=== PATIENT | female | born 2000 | race Caucasian/White ===

== ENCOUNTER → 2020-08-31 14:49 | Outpatient (BNVA) | payer OTHER, SELFPAY | PROVIDERS: Visit Provider Advanced Practice Midwife | DX: Z32.01 Encounter for pregnancy test, result positive (principal) | CPT/HCPCS: 81025; 99212 ==

== ENCOUNTER → 2020-09-23 10:05 | Outpatient (BNVA) | payer OTHER, SELFPAY | PROVIDERS: Visit Provider Advanced Practice Midwife | DX: Z32.01 Encounter for pregnancy test, result positive (principal) | CPT/HCPCS: 99212 ==

== ENCOUNTER 2020-09-30 08:47 | Outpatient (REF) | payer OTHER, SELFPAY ==
[2020-09-30 10:22] LABS: Hematocrit 39.3 % (37-47); Hemoglobin 13.3 g/dl (12.0-16.0); Mean Corpuscular HGB Conc 33.8 g/dl (31.0-35.0); Mean Corpuscular Hemoglobin 29.4 pg (27.0-33.0); Mean Corpuscular Volume 86.9 fL (80-98); Mean Platelet Volume 10.6 fL (9.4-12.3); Platelet Count 211 X10*3/uL (160-400); Red Blood Count 4.52 X10*6/uL (4.20-5.50); Red Cell Distribution Width 12.6 % (11.0-16.0); White Blood Count 8.8 X10*3/uL (4.8-10.8)
[2020-09-30 10:41] LABS: Glucose 1 Hour PP 50gm Dose 98 mg/dL (60-140)
[2020-09-30 11:54] LABS: HBsAGNum1 0.19 S/CO (0.00-0.99); Hepatitis B Surface Antigen Negative (Negative); Syphilis Screen Nonreactive (Nonreactive)
[2020-09-30 12:07] LABS: Amphetamine Screen Urine Not Detected (Not Detect); Barbiturates, Urine Not Detected (Not Detect); Benzodiazepines Screen Urine Not Detected (Not Detect); Cannabinoid Screen Urine Not Detected (Not Detect); Cocaine Screen Urine Not Detected (Not Detect); HIV AB/AG Nonreactive (Nonreactive); HIV Num 1 0.07 S/CO (0.00-0.99); Opiate Screen Urine Not Detected (Not Detect); Phencyclidine Screen Urine Not Detected (Not Detect); ~HepC Num1 0.15 S/CO (0.00-0.79); ~Hepatitis C Antibody Nonreactive (Nonreactive)
[2020-10-02 05:32] LABS: Rubella IgG Antibody <0.90 Index; Varicella IgG Antibody <135.00 index
== END 2020-09-30 08:48 | disposition home or self-care (01) ==
LOC: HO.LAB 08:47
PROVIDERS: Visit Provider Advanced Practice Midwife
DX: Z01.84 Encounter for antibody response examination (principal); Z11.4 Encounter for screening for human immunodeficiency virus [HIV]; Z11.59 Encounter for screening for other viral diseases
CPT/HCPCS: 80307; 85027; 86762; 86780; 86787; 86803; 86850; 86886; 86900; 86901; 87086; 87340; 87389

== ENCOUNTER 2020-10-07 09:01 | Outpatient (REF) | payer OTHER, SELFPAY ==
[2020-10-08 02:39] LABS: CT PCR NOT DETECTED (Not Detect.); NG PCR NOT DETECTED (Not Detect.)
[2020-10-08 13:01] LABS: BV Int Neg Control Negative (Negative); BV Int Pos Control Positive (Positive)
[2020-10-14 21:26] LABS: HPV 16 RNA NOT DETECTED (NOT DETECTED); HPV mRNA E6/E7 rflx Detected (Not Detected)
== END 2020-10-07 09:02 | disposition home or self-care (01) ==
LOC: HO.LAB 09:01
PROVIDERS: Visit Provider Advanced Practice Midwife
DX: Z01.419 Encounter for gynecological examination (general) (routine) without abnormal findings (principal); Z34.01 Encounter for supervision of normal first pregnancy, first trimester; Z3A.11 11 weeks gestation of pregnancy; Z20.2 Contact with and (suspected) exposure to infections with a predominantly sexual mode of transmission
CPT/HCPCS: 87480; 87491; 87510; 87591; 87624; 87625; 87660; 88142; 99212

== ENCOUNTER 2020-10-16 12:15 | Outpatient (REF) | payer OTHER, SELFPAY ==
--- NOTE | ~2020-10-16 | US_ITS ---
EXAMINATION: OBSTETRICAL ULTRASOUND, FIRST TRIMESTER HISTORY: 20-year-old at the 12.2 weeks NT screening COMPARISON: None TECHNIQUE: Real time transabdominal imaging with color and M-mode Doppler. FINDINGS: A single, live IUP CRL of 70.1 mm c/w 13.2wks is noted. Heart Rate: 155 beats per minute. Normal yolk sac seen. NT was 1.5.mm. NB Present The embryo appears sonographically wnl for this GA. Small subchorionic hematoma. Both maternal ovaries are seen and appear normal. GESTATIONAL AGE: 1. Established GA: 12.2 wks 2. GA from [facility]: 13.2 wks ESTIMATED DATE OF DELIVERY: 1. Established PRITESH: 04/28/2020 2. PRITESH from [facility]: 04/21/2020 US/US OB 1T nuc measure IMPRESSION: 1. A single live IUP 2. size equals dates 3. NT of 1.53 mm MFM Consultation: I reviewed the ultrasound findings along with significance of NT measurement. The NT of less than 3mm is generally reassuring. However, the sensitivity for T21 detection is only 60%. I reviewed the availability of serum aneuploidy screening which includes cell-free DNA and placental protein based tests. I discussed the sensitivity, false-positive rate, and other limitations associated with each test. I also reviewed the availability of invasive diagnostic tests that are associated small but definite risk of miscarriage. We also reviewed the differences between screening tests and diagnostic tests. After our discussion, she opted for the First trimester screening that is based on cell-free DNA or non-invasive testing (NIPT). The result will be faxed to your office in approximately 7 days. A follow up at 18 weeks for survey has been scheduled. Thank you very much for this referral. Total time 30 minutes. The time spent was devoted to counseling the patient about the disease and diagnosis, coordinating care including reviewing her records, pertinent lab data and studies, as well as discussing diagnostic evaluation and workup, plan therapeutic interventions and future disposition of care. This includes any additional research needed to obtain further information in formulating the plan of care of this patient. This note was generated with a voice recognition program. Please excuse any errors which may have been overlooked during my review of this note. Sometimes these errors may affect the content or meaning of a given sentence.
== END 2020-10-16 12:16 | disposition home or self-care (01) ==
LOC: HO.US 12:15
PROVIDERS: Visit Provider Advanced Practice Midwife
DX: Z36.82 Encounter for antenatal screening for nuchal translucency (principal)
CPT/HCPCS: 76813

== ENCOUNTER → 2020-11-04 09:48 | Outpatient (BNVA) | payer OTHER, SELFPAY | PROVIDERS: Visit Provider Advanced Practice Midwife | DX: Z34.02 Encounter for supervision of normal first pregnancy, second trimester (principal); Z3A.15 15 weeks gestation of pregnancy | CPT/HCPCS: 81003; 99212 ==

== ENCOUNTER 2020-11-27 12:53 | Outpatient (REF) | payer OTHER, SELFPAY ==
--- NOTE | ~2020-11-27 | US_ITS ---
EXAMINATION: US OBSTETRICAL CLINICAL INFORMATION: 20-year-old at 18.2 weeks of gestation Screening for anomaly COMPARISON: 10/16/2020 TECHNIQUE: Real-time transabdominal ultrasound was performed using C1-5 megahertz transducer. FINDINGS: A single, active, fetus is seen in breech presentation. The placenta is posterior without previa, and the amniotic fluid volume is wnl. MEASUREMENTS: 1. Biparietal Diameter: 4.5 cm; 19.4 wks 2. Occipital Frontal Diameter: 5.6 cm 3. Head Circumference: 16.6 cm; 19.2 wks 4. Abdominal Circumference: 13.8 cm; 19.2 wks 5. Femur Length: 2.9 cm; 19.1 wks 6. Humerus Length: 2.7 cm; 18.6 wks 7. Tibia Length: 2.6 cm; 19.4 wks 8. Ulna Length: 2.6 cm; 19.5 wks 9. Lateral ventricle: 0.8 cm 10. Cerebellum: 1.9 cm; 19.5 wks 11. Cisterna Magna: 0.43 cm 12. Nuchal Fold: 3.3 mm 13. Heart Rate: 149 beats per minute Rt ovary: normal Lt ovary: normal Cervical length 4.9 cm on T/A. GESTATIONAL AGE: 1. Established GA: 18.2 wks 2. GA from [facility]: 19.3 wks ESTIMATED DATE OF DELIVERY: 1. Established PRITESH: 04/28/2021 2. PRITESH from [facility]: 04/20/2021 ANATOMY: Bilateral choroid plexus cysts. The visualized anatomy includes but not limited to: 1. Cranium: Normal 2. Intracranial anatomy: cavum septum pellucidi, lateral ventricles, choroid plexus cyst, cerebellum, posterior fossa, third and fourth ventricles. 3. face: orbits, lip/palate, profile, nasal bone 4. Heart: four-chamber view of the heart, ventricular septum, foramen ovale, pulmonary vein, left and right outflow tracts, three-vessel view, 3 vessel trachea view, aortic and ductal arches, situs.. 5. Diaphragm: Normal 6. Abdominal wall: Normal 7. Cord Insertion: Normal 8. Spine: Cervical, thoracic, lumbar, sacral. 9. Stomach: Normal size and shape 10. Right Kidney: Normal 11. Left Kidney: Normal 12. 3 vessel cord: Normal 13. Upper extremity: Open hands, fifth digit. 14. Lower extremity: Tibia, fibula, bilateral feet. 15. Bladder: Normal 16. Genitalia: Male, patient aware US/US OB /maternal det add IMPRESSION: 1. Single, living, intrauterine with appropriate biometry. 2. Bilateral choroid plexus cysts. Rest of the anatomy was within normal limits. 3. Amniotic fluid volume within normal limits DISCUSSION: I reviewed today's ultrasound findings. I informed the patient that the choroid plexus cyst and not congenital abnormalities. In majority of the cases there are associated with the benign obstetrical outcome. Although it is seen in approximately 3% of normal fetuses at this gestational age, the frequency is higher in fetuses with trisomy 18. The likelihood ratio is 2.0. In the setting of low risk N IPT, isolated choroid plexus cyst is thought to be a normal variant. According to the patient, her NIPT showed low risk for trisomy 21, 18 and 13. We discussed the limitations of ultrasound in diagnosing aneuploidy and other congenital abnormalities. I reviewed the differences between screening test and diagnostic test. Amniocentesis was discussed and declined. She was informed that the baseline incidence of congenital abnormalities is approximately 3-5%. Not all these conditions are diagnosable in utero. RECOMMENDATIONS: 1. Suggest a follow-up in approximately 6 weeks (scheduled). Thank you for allowing me to participate in her care. Total time 30 minutes. The time spent was devoted to counseling the patient about the disease and diagnosis, coordinating care including reviewing her records, pertinent lab data and studies, as well as discussing diagnostic evaluation and workup, plan therapeutic interventions and future disposition of care. This includes any additional research needed to obtain further information in formulating the plan of care of this patient. This note was generated with a voice recognition program. Please excuse any errors which may have been overlooked during my review of this note. Sometimes these errors may affect the content or meaning of a given sentence.
== END 2020-11-27 12:54 | disposition home or self-care (01) ==
LOC: HO.US 12:53
PROVIDERS: Visit Provider Advanced Practice Midwife
DX: O35.9XX0 Maternal care for (suspected) fetal abnormality and damage, unspecified, not applicable or unspecified (principal); Z36.3 Encounter for antenatal screening for malformations
CPT/HCPCS: 76811; 76812

== ENCOUNTER → 2020-12-02 10:08 | Outpatient (BNVA) | payer OTHER, SELFPAY | PROVIDERS: Visit Provider Advanced Practice Midwife | DX: Z34.02 Encounter for supervision of normal first pregnancy, second trimester (principal); Z3A.19 19 weeks gestation of pregnancy; Z12.4 Encounter for screening for malignant neoplasm of cervix | CPT/HCPCS: 81003; 99212 ==

== ENCOUNTER → 2020-12-30 14:51 | Outpatient (BNVA) | payer OTHER, SELFPAY | PROVIDERS: Visit Provider Advanced Practice Midwife | DX: O99.212 Obesity complicating pregnancy, second trimester (principal); E66.9 Obesity, unspecified; Z3A.23 23 weeks gestation of pregnancy | CPT/HCPCS: 99212 ==

== ENCOUNTER 2021-01-08 12:23 | Outpatient (REF) | payer OTHER, SELFPAY ==
--- NOTE | ~2021-01-08 | US_ITS ---
EXAMINATION: OBSTETRICAL ULTRASOUND, Follow up HISTORY: 20-year-old at 24.2 weeks of gestation Choroid plexus cyst seen at the survey Size date discrepancy COMPARISON: 11/27/2020 TECHNIQUE: Real time transabdominal imaging with color and M-mode Doppler. PRESENTATION: Vertex PLACENTA LOCATION: Posterior without previa AMNIOTIC FLUID: MERCEDES 12.6 cm MEASUREMENTS: 1. Biparietal Diameter: 6.5 cm; 26.3 wks 2. Head Circumference: 24.2 cm; 26.2 wks 3. Abdominal Circumference: 21.0 cm; 25.4 wks 4. Femur Length: 4.6 cm; 25.3 wks 5. Heart Rate: 152 beats per minute Choroid plexus cysts were no longer visible. The views of posterior fossa, lateral ventricles, four-chamber view of the heart, stomach, bladder, kidneys are within normal limits. WEIGHT: EFW: 827 grams (1 lbs 13 oz) -- 92 %. BIOPHYSICAL PROFILE: Motion: 2 Tone: 2 Breathin Amniotic Fluid: 2 Total score: 8/8 GESTATIONAL AGE: 1. Established GA: 24.2 wks 2. GA from [facility]: 26.0 wks ESTIMATED DATE OF DELIVERY: 1. Established PRITESH: 04/28/2021 2. PRITESH from [facility]: 04/16/2021 US/US OB follow up IMPRESSION: 1. A single active fetus is in vertex presentation 2. Size greater than dates, EFW corresponds to 92nd percentile 3. Resolution of choroid plexus cyst 4. Reassuring testing I reassured her that the growth is appropriate. Vertebral early to extrapolate to apparatus weights. Even though the EFW corresponds to 92nd percentile, this does not predict macrosomia at delivery. Follow-up ultrasound has not been scheduled. Thank you very much for this referral. Total time 20 minutes. The time spent was devoted to counseling the patient about the disease and diagnosis, coordinating care including reviewing her records, pertinent lab data and studies, as well as discussing diagnostic evaluation and workup, plan therapeutic interventions and future disposition of care. This includes any additional research needed to obtain further information in formulating the plan of care of this patient. This note was generated with a voice recognition program. Please excuse any errors which may have been overlooked during my review of this note. Sometimes these errors may affect the content or meaning of a given sentence.
== END 2021-01-08 12:24 | disposition home or self-care (01) ==
LOC: HO.US 12:23
PROVIDERS: PCP Internal Medicine; Visit Provider Advanced Practice Midwife
DX: O35.0XX0 Maternal care for (suspected) central nervous system malformation in fetus, not applicable or unspecified (principal); O26.842 Uterine size-date discrepancy, second trimester; Z3A.24 24 weeks gestation of pregnancy
CPT/HCPCS: 76816

== ENCOUNTER → 2021-01-27 10:28 | Outpatient (BNVA) | payer OTHER, SELFPAY | PROVIDERS: Visit Provider Advanced Practice Midwife | DX: O99.212 Obesity complicating pregnancy, second trimester (principal); E66.9 Obesity, unspecified; O35.0XX0 Maternal care for (suspected) central nervous system malformation in fetus, not applicable or unspecified; O28.2 Abnormal cytological finding on antenatal screening of mother; O99.322 Drug use complicating pregnancy, second trimester; F12.90 Cannabis use, unspecified, uncomplicated; Z71.51 Drug abuse counseling and surveillance of drug abuser; Z67.40 Type O blood, Rh positive; Z79.82 Long term (current) use of aspirin; Z3A.27 27 weeks gestation of pregnancy | CPT/HCPCS: 81003; 99212 ==

== ENCOUNTER 2021-01-29 10:46 | Outpatient (REF) | payer OTHER, SELFPAY ==
--- NOTE | ~2021-01-29 | US_ITS ---
EXAMINATION: OBSTETRICAL ULTRASOUND, Follow up HISTORY: 20-year-old at the 27.2 weeks of gestation Size date discrepancy Choroid plexus cyst seen at the survey COMPARISON: 01/08/2021 TECHNIQUE: Real time transabdominal imaging with color and M-mode Doppler. PRESENTATION: Vertex PLACENTA LOCATION: Posterior without previa AMNIOTIC FLUID: Within normal limits MEASUREMENTS: 1. Biparietal Diameter: 6.9 cm; 27.5 wks 2. Head Circumference: 26.6 cm; 29.0 wks 3. Abdominal Circumference: 24.4 cm; 28.5 wks 4. Femur Length: 5.4 cm; 28.3 wks 5. Heart Rate: 139 beats per minute WEIGHT: EFW: 1242 grams (2 lbs 12 oz) -- 85 %. The views of the posterior fossa, lateral ventricles, four-chamber view of the heart, stomach, kidneys and bladder are within normal limits. The choroid plexus cysts have resolved. BIOPHYSICAL PROFILE: Motion: 2 Tone: 2 Breathin Amniotic Fluid: 2 Total score: 8/8 GESTATIONAL AGE: 1. Established GA: 28.4 wks 2. GA from [facility]: 27.2 wks ESTIMATED DATE OF DELIVERY: 1. Established PRITESH: 04/28/2021 2. PRITESH from [facility]: 04/19/2021 US/US OB follow up IMPRESSION: 1. A single active fetus is in vertex presentation 2. Size equals dates 3. Choroid plexus cysts in the longer visible 4. Reassuring biophysical profile I reviewed today's findings and gave her reassurance. As expected, choroid plexus cysts were no longer present. However, this finding itself does not rule out trisomy 18. Given that the majority of fetuses with trisomy 18 will be growth restricted, they appropriate the biometry obtained today is reassuring. Patient has one hour GLT pending. No further ultrasound has been scheduled at this time. Thank you very much for this referral. Total time 20 minutes. The time spent was devoted to counseling the patient about the disease and diagnosis, coordinating care including reviewing her records, pertinent lab data and studies, as well as discussing diagnostic evaluation and workup, plan therapeutic interventions and future disposition of care. This includes any additional research needed to obtain further information in formulating the plan of care of this patient. This note was generated with a voice recognition program. Please excuse any errors which may have been overlooked during my review of this note. Sometimes these errors may affect the content or meaning of a given sentence.
== END 2021-01-29 10:47 | disposition home or self-care (01) ==
LOC: HO.US 10:46
PROVIDERS: Visit Provider Advanced Practice Midwife
DX: O35.0XX0 Maternal care for (suspected) central nervous system malformation in fetus, not applicable or unspecified (principal); O99.212 Obesity complicating pregnancy, second trimester; E66.9 Obesity, unspecified; Z3A.27 27 weeks gestation of pregnancy
CPT/HCPCS: 76816

== ENCOUNTER → 2021-02-10 13:28 | Outpatient (BNVA) | payer OTHER, SELFPAY | PROVIDERS: Visit Provider Advanced Practice Midwife | DX: O99.213 Obesity complicating pregnancy, third trimester (principal); E66.9 Obesity, unspecified; Z68.39 Body mass index [BMI] 39.0-39.9, adult; Z3A.29 29 weeks gestation of pregnancy | CPT/HCPCS: 81003; 99212 ==

== ENCOUNTER 2021-02-17 09:13 | Outpatient (REF) | payer OTHER, SELFPAY ==
[2021-02-17 10:15] LABS: Hematocrit 35.1 % (37.0-47.0); Hemoglobin 11.7 g/dl (12.0-16.0); Mean Corpuscular HGB Conc 33.3 g/dl (31.0-35.0); Mean Corpuscular Hemoglobin 28.7 pg (27.0-33.0); Mean Corpuscular Volume 86.2 fL (80.0-98.0); Mean Platelet Volume 10.7 fL (9.4-12.3); Platelet Count 208 X10*3/uL (160-400); Red Blood Count 4.07 X10*6/uL (4.20-5.50); Red Cell Distribution Width 13.4 % (11.0-16.0); White Blood Count 6.9 X10*3/uL (4.8-10.8)
[2021-02-17 11:00] LABS: Syphilis Screen Nonreactive (Nonreactive)
[2021-02-17 11:31] LABS: Glucose 1 Hour PP 50gm Dose 93 mg/dL (60-140)
== END 2021-02-17 09:14 | disposition home or self-care (01) ==
LOC: HO.LAB 09:13
PROVIDERS: Visit Provider Advanced Practice Midwife
DX: Z34.00 Encounter for supervision of normal first pregnancy, unspecified trimester (principal)
CPT/HCPCS: 36415; 85027; 86780

== ENCOUNTER → 2021-02-22 09:35 | Outpatient (BNVA) | payer OTHER, SELFPAY | PROVIDERS: Visit Provider Advanced Practice Midwife | DX: O99.213 Obesity complicating pregnancy, third trimester (principal); E66.9 Obesity, unspecified; Z3A.30 30 weeks gestation of pregnancy | CPT/HCPCS: 81003; 99212 ==

== ENCOUNTER → 2021-03-10 12:54 | Outpatient (BNVA) | payer OTHER, SELFPAY | PROVIDERS: Visit Provider Advanced Practice Midwife | DX: Z34.03 Encounter for supervision of normal first pregnancy, third trimester (principal); Z3A.33 33 weeks gestation of pregnancy | CPT/HCPCS: 81003; 99212 ==

== ENCOUNTER 2021-04-01 14:23 | Outpatient (REF) | payer OTHER, SELFPAY | END 2021-04-01 14:24 | disposition home or self-care (01) | LOC: HO.LAB 14:23 | PROVIDERS: Visit Provider Obstetrics & Gynecology | DX: Z34.93 Encounter for supervision of normal pregnancy, unspecified, third trimester (principal); Z3A.33 33 weeks gestation of pregnancy | CPT/HCPCS: 87081; 99212 ==

== ENCOUNTER → 2021-04-09 10:35 | Outpatient (BNVA) | payer OTHER, SELFPAY | PROVIDERS: Visit Provider Advanced Practice Midwife | DX: Z34.03 Encounter for supervision of normal first pregnancy, third trimester (principal); Z3A.37 37 weeks gestation of pregnancy | CPT/HCPCS: 99212 ==

== ENCOUNTER 2025-02-03 03:10 | Emergency (ER) | payer OTHER, SELFPAY ==
[2025-02-03 03:12] VITALS: BP 129/84; PULSE 60; RESP 16; TEMP 36.2; O2SAT 97; BMI 39.4
[2025-02-03 03:24] LABS: MANUAL DIFF FLAG NO
[2025-02-03 03:26] LABS: Hematocrit 40.1 % (37.0-47.0); Hemoglobin 13.2 g/dl (12.0-16.0); Imm Gran Abs Auto 0.04 X10*3/uL (0.00-0.03); Imm Gran Pct Auto 0.3 % (0.0-0.4); Lymphocytes Absolute Auto 2.9 X10*3/uL (1.2-4.9); Mean Corpuscular HGB Conc 32.9 g/dl (31.0-35.0); Mean Corpuscular Hemoglobin 27.8 pg (27.0-33.0); Mean Corpuscular Volume 84.6 fL (80.0-98.0); NRBC Abs Auto 0.000 X10*3/uL (0.0-0.012); NRBC Pct Auto 0.0 /100WBC (0.0-0.2); Platelet Count 248 X10*3/uL (160-400); Red Blood Count 4.74 X10*6/uL (4.20-5.50); White Blood Count 12.4 X10*3/uL (4.8-10.8)
[2025-02-03 03:39] LABS: Alanine Aminotransferase 18 U/L (0-31); Albumin Level 4.5 g/dL (3.5-5.0); Alkaline Phosphatase 61 U/L (39-117); Anion Gap 14 (12-20); Aspartate Amino Transferase 24 U/L (5-31); Blood Urea Nitrogen 12 mg/dL (9-16); Calcium 9.0 mg/dL (8.4-10.2); Carbon Dioxide 21 mmol/L (22-29); Chloride 106 mmol/L (96-108); Creatinine Clr Calc Pharmacy 169.3; Estimated Glomerular Filt Rate > 60; Potassium 3.8 mmol/L (3.3-5.1); Sodium 137 mmol/L (135-145); Total Protein 7.8 g/dL (6.5-8.0)
--- NOTE | 2025-02-03 04:38 | ED_ITS ---
HPI - Abdominal Pain General Chief Complaint: Abdominal Pain Stated Complaint: Stomach Pain Time Seen by Provider: 02/03/25 03:41 Source: patient Mode of arrival: ambulatory Limitations: no limitations History of Present Illness ED Provider: Dalton SANCHEZ HPI narrative: The patient is a 24-year-old female presenting to the ED reporting earlier this evening shortly after arriving at work she developed periumbilical abdominal pain and cramping with the urge to move her bowels, patient denies associated fever/chills, nausea, vomiting, diarrhea, chest pain, shortness of breath, cough, recent sick contacts, or recent trauma. The patient reports history of last year, denies other surgical abdominal history. The patient reports she attempted to move her bowels after pain began, but no stool passed. The patient reports she urinated 2 hours ago without dysuria or hematuria, however the patient reports last week she did experience intermittent episodes of right low back pain and has a remote history of recurrent UTIs as a child. Patient reports she finished her menstruation as expected 2 days ago, denies vaginal discharge or irregular bleeding. The patient reports she took ibuprofen at approximately 01:30 and has already noted improvement, but not complete resolution, of her pain. Related Data Previous Rx's ?Medication ?Instructions ?Recorded vitamins with calcium 1 tab PO DAILY #30 tabs 08/31/20 no.72-iron 27 mg-folic acid 1 mg tablet ( Vitamins Plus Low Iron) aspirin 81 mg tablet,delayed 162 mg (2 x 81 mg) PO KIRA LY #120 12/30/20 release (Adult Aspirin Regimen) tabs Allergies Allergy/AdvReac Type Severity Reaction Status Date / Time No Known Allergies Allergy Verified 02/03/25 03:15 Review of Systems Review of Systems Yes all other systems are reviewed and are negative [facility] Past Medical History Medical History Class 1 obesity with body mass index (BMI) of 33.0 to 33.9 in adult Surgical History No pertinent past surgical history Family History Family History Maternal Grandmother No problems noted. Mother Essential hypertension Social History Social History (Reviewed 04/09/21 @ 10:49 by Kane Marie [facility]) Household Members: Family Housing: Apartment Alcohol intake: former Patient Tobacco Use Status: Never used Tobacco e-Cigarette/Vaping Use: Never Used Second Hand Smoke Exposure: No Substance Use Type: Marijuana Trauma History: none reorted Agree to transfusion: Yes Advance Directives: No Advance Directives Information Provided: No service: No Current occupational status: employed Current occupational exposures/hazards: No Physical Exam ED Vital Signs: Vital Signs - 24 hr 02/03/25 03:12 Temperature 97.1 F Pulse Rate 60 Respiratory Rate 16 Blood Pressure 129/84 Pulse Oximetry 97 Oxygen Delivery Method Room Air BMI result Body Mass Index 39.4 CONSTITUTIONAL: The patient appears non-toxic, well nourished and in no acute distress. Vital signs as documented. HEAD: Atraumatic, normocephalic. EYES: EOMs grossly intact, pupils equal, conjunctiva clear, no exudate. ENT: Nares patent, no discharge. Airway patent, no audible stridor, visible mucosa is pink and moist without noted lesions. NECK: Trachea is midline, no obvious masses or gross abnormalities. CHEST: Symmetric movement, normal appearance. LUNGS: LS present and CTAB, no w/r/r. Non-labored work of breathing. CARDIAC: Regular Rhythm, S1/S2 appreciated, no murmurs, rubs or gallops. ABDOMEN: Abdomen soft and non-tender x4 quadrants, specifically no right lower quadrant tenderness or rebound, no palpable masses or organomegaly. : Deferred. EXTREMITIES: Normal tone, moves all extremities spontaneously without reported pain. No obvious acute injury or deformity noted. NEURO: Alert and oriented x3, CN II-XII appear grossly intact. Cerebellar Functioning grossly intact. No obvious sensory or motor deficits. Speech clear and appropriate. PSYCH: normal affect, appropriate eye contact, fluid speech, with appropriate response to questioning. No reported suicidality or homicidality. SKIN: Warm, dry, color appropriate, normal turgor. No rashes noted. Medical Decision Making Medical Decision Making [facility] Narrative: 4:38 AM 02/03/2025 (Lesly SANCHEZ): The patient is a 24-year-old female presenting to the ED reporting earlier this evening shortly after arriving at work she developed periumbilical abdominal pain and cramping with the urge to move her bowels, patient denies associated fever/chills, nausea, vomiting, diarrhea, chest pain, shortness of breath, cough, recent sick contacts, or recent trauma. The patient reports history of last year, denies other surgical abdominal history. The patient reports she attempted to move her bowels after pain began, but no stool passed. The patient reports she urinated 2 hours ago without dysuria or hematuria, however the patient reports last week she did experience intermittent episodes of right low back pain and has a remote history of recurrent UTIs as a child. Patient reports she finished her menstruation as expected 2 days ago, denies vaginal discharge or irregular bleeding. The patient reports she took ibuprofen at approximately 01:30 and has already noted improvement, but not complete resolution, of her pain. In the ED patient appears in no acute distress, abdominal exam is nontender, specifically no right lower quadrant tenderness, no rebound. The patient's laboratory evaluation shows mild leukocytosis of 12.4, otherwise no anemia, electrolyte abnormality, or DAVEY. The patient's T bili is mildly elevated at 1.1, all other LFTs are normal. The patient arrives to the ED afebrile, normotensive, without tachycardia, tachypnea, or hypoxia. Given the patient's nontender abdominal exam without vomiting or diarrhea, there is no indication for CT or ultrasound imaging at this time. Due to the patient's WBCs of 12.4 we will obtain a urinalysis. Pending unremarkable urinalysis we will plan to discharge with supportive care and outpatient PCP follow up. 5:00 AM 02/03/2025 (Lesly SANCHEZ): Patient's urinalysis shows no nitrites, no leukocyte esterase, and no blood. There are 6-10 WBCs and 3+ bacteria however there is also 11-20 squamous epithelial cells with 3-5 hyaline casts, urinalysis in the setting of no active urinary symptoms is more consistent with contamination than true infection. Urinalysis will be sent for culture. The patient appears reliable and has been educated to follow up culture to ensure no indication for antibiotic therapy. Admission/Observation Consideration of admission/observation: Escalation of care including admission/observation considered Lab Data MDM Lab Attestation statement: I reviewed the patient's lab results. 02/03/25 03:19 02/03/25 03:19 Labs: Lab Results 02/03/25 02/03/25 Range/Units 03:19 04:41 WBC 12.4 H (4.8-10.8) X10*3/uL RBC 4.74 (4.20-5.50) X10*6/uL Hgb 13.2 (12.0-16.0) g/dl Hct 40.1 (37.0-47.0) % MCV 84.6 (80.0-98.0) fL MCH 27.8 (27.0-33.0) pg MCHC 32.9 (31.0-35.0) g/dl RDW 13.8 (11.0-16.0) % Plt Count 248 (160-400) X10*3/uL MPV 10.4 (9.4-12.3) fL Immature Gran % (Auto) 0.3 (0.0-0.4) % Neut % (Auto) 71.6 (45-73) % Lymph % (Auto) 23.4 (20-40) % Carson % (Auto) 3.6 (2-11) % Eos % (Auto) 0.8 (0-4) % Baso % (Auto) 0.3 (0-2) % Lymph # (Auto) 2.9 (1.2-4.9) X10*3/uL Carson # (Auto) 0.5 (0.1-1.2) X10*3/uL Eos # (Auto) 0.1 (0.0-0.4) X10*3/uL Baso # (Auto) 0.0 (0.0-0.2) X10*3/uL Abs Immat Gran (auto) 0.04 H (0.00-0.03) X10*3/uL Absolute Neuts (auto) 8.9 H (2.0-8.3) x10*3/uL Absolute Nucleated RBC 0.000 (0.0-0.012) X10*3/uL Nucleated RBC % (auto) 0.0 (0.0-0.2) /100WBC Sodium 137 (135-145) mmol/L Potassium 3.8 (3.3-5.1) mmol/L Chloride 106 (96-108) mmol/L Carbon Dioxide 21 L (22-29) mmol/L Anion Gap 14 (12-20) BUN 12 (9-16) mg/dL Creatinine 0.64 (0.5-1.4) mg/dL Estim Creat Clear Calc 169.3 Estimated GFR > 60 Random Glucose 109 (60-115) mg/dL Calcium 9.0 (8.4-10.2) mg/dL Total Bilirubin 1.1 H (0.0-1.0) mg/dL AST 24 (5-31) U/L ALT 18 (0-31) U/L Alkaline Phosphatase 61 (39-117) U/L Total Protein 7.8 (6.5-8.0) g/dL Albumin 4.5 (3.5-5.0) g/dL Urine Color Yellow Urine Appearance Clear Urine pH 5.5 (5.0-9.0) Ur Specific Buda >= 1.030 H (1.005-1.025) Urine Protein Negative (Neg-Trace) mg/dL Urine Glucose (UA) Negative (Negative) mg/dL Urine Ketones Negative (Negative) mg/dL Urine Blood Negative (Negative) Urine Nitrite Negative (Negative) Ur Leukocyte Esterase Negative (Negative) Urine RBC 0-2 (0-2) /HPF Urine WBC 6-10 H (0-5) /HPF Ur Squamous Epith Cells 11-20 (0-2) /HPF Urine Bacteria 3+ (None Seen) Hyaline Casts 3-5 (0-2) /LPF Urine Test NEGATIVE (NEGATIVE) Prescription Management I considered prescription management with: Pain Medication and Antibiotic Discharge Plan Discharge Clinical Impression: Abdominal pain Patient Disposition: Home, Self-Care Instructions: Abdominal Pain (ED) Additional Instructions: Thank you for choosing [facility]'s Emergency Department for your care today. Your laboratory evaluation shows no evidence of anemia, electrolyte abnormality, or kidney dysfunction. Your urine test was negative. At this time there is no indication for admission to the hospital or continued ED observation, and it is safe to discharge you home. We are glad your pain improved with ibuprofen you took prior to arrival in the ED. The exact cause of your abdominal pain is not entirely clear, however seeing as you had no abdominal tenderness on exam, had no fever, and your vital signs are reassuring, there was no indication for advanced emergent imaging. Your urinalysis appears slightly contaminated but shows no overwhelming evidence of a urinary tract infection. Seeing as you are not currently experiencing burning with the urination or other symptoms of a urinary tract infection, there was no indication for antibiotic treatment at this time. Your urinalysis will be sent for a urine culture, if your urine culture is positive for infection you will be contacted and antibiotics will be recommended/started. You should take alternating (staggered) doses of ibuprofen 600mg and Tylenol 1000mg every 4 hours as needed for any additional pain. Please stay well hydrated and get plenty of rest. Please follow up with your primary care physician for re-evaluation, additional management of your symptoms, and continued preventative care. If you do not have a primary care physician, please call the [facility] at [phone] to establish a new primary care physician. While waiting to establish your new primary care physician, you can call our Walk[facility]in [facility] at [phone] for non-emergency needs. Please return to the emergency department if you develop a severe or sudden change in your symptoms, a fever over 100.4 that does not improve with Tylenol or Ibuprofen, recurrent vomiting, or any other new or worsening symptoms or concerns. Prescriptions: No Action Vitamin Plus Low Iron 27 mg iron- 1 mg tablet 1 tab PO DAILY Qty: 30 10RF aspirin [Adult Aspirin Regimen] 81 mg tablet,delayed release (DR/EC) 162 mg PO DAILY Qty: 120 2RF Referrals: Yenny Olea MD [Primary Care Provider, Internal Medicine] Clinical Impression: Abdominal pain Print Language: Divehi
[2025-02-03 04:47] LABS: Appearance Urine Clear; Glucose Urine UA Negative (Negative); PH 5.5 (5.0-9.0); Specific Gravity - Urine >= 1.030 (1.005-1.025)
[2025-02-03 04:48] LABS: UPreg QC Valid YES
[2025-02-03 04:51] LABS: UACC Culture Trigger YES
[2025-02-03 05:10] VITALS: BP 118/80; PULSE 63; RESP 16; TEMP 36.4; O2SAT 98
[2025-02-03 05:14] VITALS: BP 118/80; PULSE 63; RESP 16; TEMP 36.4; O2SAT 98
== END 2025-02-03 05:14 | disposition home or self-care (01) ==
PROVIDERS: Emergency Provider Emergency Medicine; PCP Internal Medicine
DX: R10.20 Pelvic and perineal pain unspecified side (principal); R10.9 Unspecified abdominal pain
CPT/HCPCS: 36415; 80053; 81001; 81025; 85025; 87086; 99283; 99284